=== PATIENT | male | born 1990 | race Caucasian/White ===

== ENCOUNTER 2023-06-06 22:01 | Emergency (ER) | payer SELFPAY ==
[~2023-06-06] VITALS: Ht 177.8 cm; Wt 80.0 kg
[2023-06-06 22:27] VITALS: O2SAT 99
[2023-06-06 22:45] VITALS: TEMP 98.7
[2023-06-06] MEDS: ACETAMINOPHEN 325MG TABLET PO ONE (22:45)
[2023-06-06 23:00] VITALS: BP 102/70; PULSE 62; RESP 18
[2023-06-06] MEDS: KETOROLAC 60MG/2ML VIAL IM NR (23:00)
[2023-06-06] MEDS: ONDANSETRON 4MG ODT PO ONE (23:30)
[2023-06-06] MEDS: LIDOCAINE HCL/PF 1% 10 MG/ML 5ML VIAL INFIL ONE (23:30)
[2023-06-06] MEDS: MORPHINE SULFATE 10 MG/ML CPJ IM ONE (23:30)
== END 2023-06-07 01:45 | disposition left against medical advice (07) ==
LOC: ER 22:01
DX: S82.851A Displaced trimalleolar fracture of right lower leg, initial encounter for closed fracture (principal); X58.XXXA Exposure to other specified factors, initial encounter; Y93.89 Activity, other specified; Y92.89 Other specified places as the place of occurrence of the external cause; Y99.8 Other external cause status
CPT/HCPCS: 99284; 29515; 73610 ×2; 96372; Q0162; J1885; J3490; J2270